=== PATIENT | male | born 1975 | race Caucasian/White ===

== ENCOUNTER 2017-01-01 08:46 | Emergency (ER) | payer BC ==
[~2017-01-01] VITALS: Ht 177.8 cm; Wt 65.8 kg
[2017-01-01 08:46] VITALS: BP 120/73
[2017-01-01] MEDS ORDERED: AMOX875T PO (09:11)
[2017-01-01] MEDS ORDERED: ACET30TAB PO (09:11)
[2017-01-01] MEDS ORDERED: NORCOTAB PO (10:14)
== END 2017-01-01 10:20 | disposition home or self-care (01) ==
LOC: M ED 09:48
DX: K04.7 Periapical abscess without sinus (principal); K03.9 Disease of hard tissues of teeth, unspecified; G50.1 Atypical facial pain; F17.200 Nicotine dependence, unspecified, uncomplicated

== ENCOUNTER 2018-02-14 15:11 | Emergency (ER) | payer BC ==
[2018-02-14] MEDS ORDERED: PERCOCET 5MG/325MG TAB PO (16:00)
[2018-02-14] MEDS: MORPHINE 4 MG/ML 1ML VIAL/SYRINGE (J2270) IV ×2 (16:11→18:36)
[2018-02-14] MEDS: LIDOCAINE 2% MDV 20 ML VIAL SC ×2 (16:30→19:30)
[2018-02-14] MEDS: CEPHALEXIN 500 MG CAP PO ×2 (19:36→20:34)
[2018-02-14] MEDS: NORCO 5/325MG TABLET (BULK FOR ED) PO (20:34)
== END 2018-02-14 20:35 | disposition home or self-care (01) ==
LOC: M ED 15:11
DX: S63.287A Dislocation of proximal interphalangeal joint of left little finger, initial encounter (principal); S63.283A Dislocation of proximal interphalangeal joint of left middle finger, initial encounter; W23.0XXA Caught, crushed, jammed, or pinched between moving objects, initial encounter; Y92.9 Unspecified place or not applicable; Y93.89 Activity, other specified; Y99.9 Unspecified external cause status; Z72.0 Tobacco use
CPT/HCPCS: J2270

== ENCOUNTER → 2018-05-28 | Outpatient (CLI) | payer BC | LOC: M WUC 08:33 | DX: M25.522 Pain in left elbow (principal); M25.422 Effusion, left elbow; M79.89 Other specified soft tissue disorders | CPT/HCPCS: 73080 ==